=== PATIENT | female | born 1950 | race Caucasian/White ===

== ENCOUNTER 2016-11-24 09:29 | Emergency (ER) | payer MEDICARE ==
[~2016-11-24] VITALS: Ht 154.9 cm; Wt 81.1 kg
[2016-11-24] MEDS ORDERED: GABA300C10 PO (10:02)
[2016-11-24] MEDS ORDERED: CARB200T2 PO (10:02)
[2016-11-24] MEDS ORDERED: PRIM50TA34 PO (10:02)
[2016-11-24 10:42] VITALS: BP 156/69
== END 2016-11-24 11:23 | disposition home or self-care (01) ==
LOC: ED 11:17
DX: S82.64XA Nondisplaced fracture of lateral malleolus of right fibula, initial encounter for closed fracture (principal); W19.XXXA Unspecified fall, initial encounter; Y93.89 Activity, other specified; Y92.410 Unspecified street and highway as the place of occurrence of the external cause; Y99.9 Unspecified external cause status
CPT/HCPCS: 29515